=== PATIENT | female | born 1980 | race Two or more races ===

== ENCOUNTER 2018-11-26 17:15 | Emergency (ER) | payer MEDICAID ==
[~2018-11-26] VITALS: Ht 157.5 cm; Wt 52.2 kg
[2018-11-26 18:00] VITALS: BP 142/88
== END 2018-11-26 18:05 | disposition home or self-care (01) ==
LOC: ER 17:18
DX: M54.9 Dorsalgia, unspecified (principal); R10.9 Unspecified abdominal pain; G89.29 Other chronic pain; I10 Essential (primary) hypertension; E11.9 Type 2 diabetes mellitus without complications; Z88.6 Allergy status to analgesic agent; Z88.5 Allergy status to narcotic agent

== ENCOUNTER 2020-03-20 05:12 | Emergency (ER) | payer MEDICAID, OTHER ==
[~2020-03-20] VITALS: Ht 152.4 cm; Wt 72.6 kg
--- NOTE | 2020-03-20 05:15 | NUR ---
ORINRA 860 FROM [facility] FOR C/O RLE PAIN. PT WAS RECENTLY D/C'D FROM RAFT FROM R THIGH TO R HEEL. PER EMS, PT REFUSED PO PAIN MED AT THE SNF; PT CALLED EMS AGAINST ADVICE OF SNF STAFF. PT AAOX4, HX OF GBS, C/O OF PAIN ON GRAFT SITE, -SOB, NOT IN ACUTE DISTRESS, VSS, PENDING ER PROVIDER RIGOBERTO
--- NOTE | 2020-03-20 06:07 | NUR ---
dr. alfredo at bedside
[2020-03-20] MEDS ORDERED: LIDOCAINE/PRILOCAINE (5GM) 5 GM TUBE TP ONE (06:15)
[2020-03-20] MEDS ORDERED: MORPHINE SULFATE INJ 2 MG/ML DISP.SYRIN ONE (06:16)
[2020-03-20] MEDS ORDERED: LET SOLN TOPICAL 8 ML UDC TP ONE ×2 (06:17→06:30)
[2020-03-20] MEDS ORDERED: MORPHINE SULFATE INJ 2 MG/ML DISP.SYRIN IM ONE (06:30)
--- NOTE | 2020-03-20 06:43 | NUR ---
SPOKE WITH GERONIMO FROM [facility] AND INFORMED PT WILL RETURN TO FACILITY
--- NOTE | 2020-03-20 06:45 | NUR ---
PT TRANSFERRED TO BED 6
--- NOTE | 2020-03-20 06:46 | NUR ---
PT REQUESTING FOR MORE PAIN MEDS, STATES "MORPHINE AND LIDOCAINE TOPICAL DID NOT WORK", PER DR. WALKER, PT D/C BACK TO [facility] AT THIS TIME. NO NEW ORDERS
--- NOTE | 2020-03-20 06:48 | NUR ---
CALLED CALL THE CAR FOR TRANSPORTATION BACK TO FACILITY. RESERVATION [phone], WILL CALL BACK WITH ETA
--- NOTE | 2020-03-20 06:54 | NUR ---
AMBULANCE ETA 45 MINUTES WITH [facility]
--- NOTE | 2020-03-20 07:03 | NUR ---
DR. WALKER ORDERED FOR CT HEAD NON CONTRAST, PT NOTED TO BE LESS ALERT, REFUSING TO ANSWER QUESTIONS AND NON VERBAL.
--- NOTE | 2020-03-20 07:03 | NUR ---
DR WALKER AT BEDSIDE ASSESSING PATIENT
--- NOTE | 2020-03-20 07:15 | NUR ---
REPORT GIVEN TO YOGI JOHNSON FOR MANAN
--- NOTE | 2020-03-20 07:15 | NUR ---
CALLED CALL THE CAR, AMBULANCE NOW ON WILL CALL
--- NOTE | 2020-03-20 07:28 | NUR ---
PT BROUGHT BY RADIOLOGY TO CT
--- NOTE | 2020-03-20 07:55 | NUR ---
at bedside for eval. states pt is ready to dischage back to facility.
--- NOTE | 2020-03-20 07:59 | NUR ---
called [id number]. ETA of [facility] 15mins
[2020-03-20] MEDS ORDERED: ONDANSETRON 4 MG TAB.RAPDIS ONE (08:17)
[2020-03-20] MEDS ORDERED: ONDANSETRON HCL/PF 4 MG/2 ML VIAL ONE (08:20)
[2020-03-20] MEDS ORDERED: ONDANSETRON HCL/PF - ER 4 MG/2 ML VIAL IM ONE (08:30)
[2020-03-20 08:51] VITALS: BP 177/89
== END 2020-03-20 08:51 ==
LOC: ER 05:16
DX: M79.604 Pain in right leg (principal); G89.29 Other chronic pain; R41.82 Altered mental status, unspecified; I10 Essential (primary) hypertension; E11.9 Type 2 diabetes mellitus without complications; Z88.6 Allergy status to analgesic agent; Z88.5 Allergy status to narcotic agent
CPT/HCPCS: 70450; 82962; 96372 ×2; 99285; J2270; J2405; Q0162